=== PATIENT | male | born 1965 | race Caucasian/White ===

== ENCOUNTER 2021-01-29 17:49 | Emergency (ER) | payer OTHER ==
[~2021-01-29] VITALS: Ht 170.2 cm; Wt 86.0 kg
[2021-01-29] MEDS ORDERED: MORPHINE SULFATE 4 MG/ML CPJ (NOT FOR IM USE) IV STA (19:11)
[2021-01-29] MEDS ORDERED: ONDANSETRON HCL 4MG/2ML INJ IV STA (19:11)
[2021-01-29] MEDS ORDERED: LIDOCAINE HCL/PF 1% 10 MG/ML 5ML VIAL IJ ONE (19:15)
[2021-01-29] MEDS ORDERED: CEFAZOLIN 1000MG PREMIX 50 ML IV ONE (19:15)
[2021-01-29] MEDS ORDERED: TETANUS, DIPHTHERIA, PERTUSSIS VAC/PF 0.5ML (>7YR OLD) IM ONE (19:15)
[2021-01-29] MEDS ORDERED: SODIUM CHLORIDE 0.9% 1,000 ML IV ONE (19:15)
[2021-01-29 20:07] LABS: BASOPHILS % 0.9 % (0.0-2.0); EOSINOPHILS % 2.7 % (0.0-5.0); HEMATOCRIT. 44.2 % (42.0-52.0); HEMOGLOBIN. 15.9 g/dL (14.0-18.0); LYMPHOCYTES % 15.6 % (20.0-50.0); MEAN CORPUSCULAR HEMOGLOBIN 32.4 pg (28.0-32.0); MEAN CORPUSCULAR VOLUME 90.2 fL (80.0-94.0); MEAN PLATELET VOLUME 9.3 fl (7.4-10.4); MONOCYTES % 6.5 % (2.0-8.0); NEUTROPHILS % 74.3 % (40.0-76.0); PLATELET 190 x1000/uL (130-400)
[2021-01-29 20:08] LABS: CHLORIDE 109 mEq/L (98-107)
[2021-01-29 20:14] LABS: PARTIAL THROMBOPLASTIN TIME 25.5 sec (23.4-31.0); PROTHROMBIN TIME 10.5 sec (9.6-11.0)
[2021-01-29] MEDS ORDERED: CEPH500C2 MT (22:08)
[2021-01-29] MEDS ORDERED: HYDR-4346 MT (22:08)
[2021-01-29] MEDS ORDERED: ONDANSETRON HCL 4MG/2ML INJ IV ONE (22:15)
[2021-01-29] MEDS ORDERED: MORPHINE SULFATE 4 MG/ML CPJ (NOT FOR IM USE) IV ONE (22:15)
[2021-01-29 22:37] VITALS: BP 128/82
== END 2021-01-29 22:52 | disposition home or self-care (01) ==
LOC: ER 17:49 → CANBEDREQ 23:07
DX: S66.120A Laceration of flexor muscle, fascia and tendon of right index finger at wrist and hand level, initial encounter (principal); Z87.442 Personal history of urinary calculi; W01.0XXA Fall on same level from slipping, tripping and stumbling without subsequent striking against object, initial encounter; Y93.89 Activity, other specified; Y92.018 Other place in single-family (private) house as the place of occurrence of the external cause
CPT/HCPCS: 26770; 36415; 73140; 80048; 85025; 85610; 85730; 90471; 90715; 93005; 96365; 96375; 96376; 99285; A4217; J0690; J2270; J2405; J3490; J7030